=== PATIENT | male | born 1990 ===

== ENCOUNTER 2022-06-21 08:32 | Day surgery (SDC) | payer OTHER ==
[~2022-06-21] VITALS: Ht 182.9 cm; Wt 87.3 kg
--- NOTE | 2022-06-21 09:43 | NUR ---
Ambulatory in Day Surgery History, Chart, Medications and Allergies reviewed before start of procedure.Pre-Op teaching done. Pt verbalizes understanding. Patient States Post-Procedure ride home has been arranged.
--- NOTE | 2022-06-21 14:20 | NUR ---
Discharge instructions reviewed with patient. Patient verbalizes understanding. Copy given to patient to take home. Dressing to procedure site clean, dry, intact with no visible drainage, swelling, erythema or bruising noted. Patient up to Ambulate independently. Gait steady. Discharged via wheelchair to private car for ride home WITH
== END 2022-06-21 23:05 | disposition home or self-care (01) ==
LOC: ORSCMMR 08:32 → ORD 10:00 → ORSCMMR 10:00
PROVIDERS: Orthopaedic Surgery
PROC: 0PSN34Z Reposition Left Carpal with Internal Fixation Device, Percutaneous Approach (ICD-10-PCS; principal; 2022-06-21 10:00)
DX: S62.025A Nondisplaced fracture of middle third of navicular [scaphoid] bone of left wrist, initial encounter for closed fracture (principal)
CPT/HCPCS: C1713; C1769; J0690; J1100; J1885; J2270; J2405; J2704; J3010; J7120